=== PATIENT | female | born 1970 | race Caucasian/White ===

== ENCOUNTER 2016-12-15 19:48 | Emergency (ER) | payer OTHER ==
[~2016-12-15] VITALS: Ht 172.7 cm; Wt 77.1 kg
--- NOTE | 2016-12-15 20:13 | ED GI/GU/ABDOMINAL COMPLAINT ---
History of Present Illness General Chief Complaint: Abdominal Pain/Flank Pain Stated Complaint: PT IS HAVING ABDOMINAL PAIN Source: patient Exam Limitations: no limitations Vital Signs & Intake/Output Vital Signs & Intake/Output Vital Signs Date Time Temp Pulse Resp B/P B/P Pulse O2 O2 Flow FiO2 Mean Ox Delivery Rate 12/16 0150 98.6 88 18 126/83 99 Room Air 12/15 2301 98.8 93 16 135/80 100 Room Air 12/15 2101 99 Room Air 12/15 1953 98.4 110 16 125/89 95 Room Air ED Intake and Output 12/16 0000 12/15 1200 Intake Total 1000 Output Total Balance 1000 Intake, IV 1000 Patient 170 lb Weight Weight Reported by Patient Measurement Method Allergies Coded Allergies: Iodinated Contrast Media - Oral and (ANAPHYLAXIS 12/15/16) morphine (HIVES, PALPITATIONS, THROAT CLOSING 12/15/16) Reconcile Medications Amitriptyline HCl 75 MG TABLET 1 TAB PO QPM MIGRAINES (Reported) Ciprofloxacin HCl (Cipro) 500 MG TABLET 1 TAB PO BID gi infection Diphenoxylate HCl/Atropine (Lomotil 2.5-0.025 MG Tablet) 2.5 MG-0.025 MG TABLET 1 TAB PO 4 TIMES/DAY diarrhea Loratadine (Claritin) 10 MG TABLET 1 TAB PO DAILY ALLERGIES (Reported) Metronidazole (Flagyl) 500 MG TABLET 1 TAB PO 4 TIMES/DAY gi infection Ondansetron (Zofran Odt) 4 MG TAB.RAPDIS 1 TAB SL TID PRN nausea Topiramate (Topamax) 100 MG TABLET 1 TAB PO QPM MIGRAINES (Reported) Triage Note: PT TO ED FOR MID/LOWER ABD PAIN AND L SIDED "TEARING" PAIN. PAIN WORSE WITH MOVEMENT. +NAUSEA, +VOMITING, +WATERY DIARRHEA "WITH BLOOD". PT REPORTS TACTILE FEVER LAST PM. PT SEEN AT [facility] THIS AM FOR SAME. DISCHARGED WITH NO SCRIPTS "THEY JUST SAID MY CREATININE WAS ELEVATED." Triage Nurses Notes Reviewed? yes ? n Is pt currently ? No Onset: Gradual Duration: day(s):, waxing and waning Timing: recent history Quality/Severity: cramping Location: generalized abdomen Radiation: no radiation Activities at Onset: none Modifying Factors: Worsens With: defecating, palpation. Associated Symptoms: abdominal pain, diarrhea, nausea/vomiting HPI: 46-year-old woman history of polycystic kidney disease presents with 1-2 day history of nausea vomiting diarrhea. She states, "the diarrhea just comes right out at me. I can't hold anything down. I feel really weak." She does not recall any suspicious food ingestions. She knows no other sick contacts. She has no fever chills dysuria chest pain dizziness. She is otherwise well. Past History Travel History Traveled to [place] past 21 day No Medical History Any Pertinent Medical History? see below for history Neurological: migraine EENT: NONE Cardiovascular: NONE Respiratory: NONE Gastrointestinal: NONE Hepatic: NONE Renal: kidney disease "reduced renal function" Musculoskeletal: NONE Psychiatric: NONE Endocrine: NONE Surgical History Surgical History: non-contributory Psychosocial History What is your primary language Arabic Tobacco Use: Quit >30 days ago Family History Hx Contributory? No Review of Systems Review of Systems Constitutional: Reports: no symptoms. EENTM: Reports: no symptoms. Respiratory: Reports: no symptoms. Cardiovascular: Reports: no symptoms. GI: Reports: no symptoms. Genitourinary: Reports: no symptoms. Musculoskeletal: Reports: no symptoms. Skin: Reports: no symptoms. Neurological/Psychological: Reports: no symptoms. Hematologic/Endocrine: Reports: no symptoms. Immunologic/Allergic: Reports: no symptoms. All Other Systems: Reviewed and Negative Physical Exam Physical Exam General Appearance: well developed/nourished, mild distress, moderate distress Head: atraumatic, normal appearance Eyes: Bilateral: normal appearance. Ears, Nose, Throat, Mouth: hearing grossly normal Neck: normal inspection, supple Respiratory: normal breath sounds, chest non-tender, no respiratory distress, quiet respiration, lungs clear Cardiovascular: regular rate/rhythm Gastrointestinal: normal bowel sounds, soft, diffuse tenderness along the left flank and right lower quadrant. No rebound no guarding no organomegaly Back: normal inspection Extremities: normal range of motion Neurologic/Psych: no motor/sensory deficits, awake, alert, oriented x 3 Skin: intact, normal color, warm/dry Core Measures ACS in differential dx? No Severe Sepsis Present: No Septic Shock Present: No Progress Differential Diagnosis: colitis versus diverticulitis versus UTI versus cholecystitis versus other Plan of Care: Orders Procedure Date/time Status BASIC METABOLIC PANEL 12/15 2330 Complete URINALYSIS 12/15 1952 Complete TROPONIN LEVEL 12/15 1952 Complete LIPASE 12/15 1952 Complete HEPATIC FUNCTION PANEL 12/15 1952 Complete CBC WITHOUT DIFFERENTIAL 12/15 1952 Complete BASIC METABOLIC PANEL 12/15 1952 Complete AMYLASE 12/15 1952 Complete EKG 12/15 1952 Active Laboratory Tests 12/15/16 2336: Anion Gap 12, Estimated GFR 37 L, BUN/Creatinine Ratio 12.0, Glucose 95, Calcium 8.4 12/15/162258: Urine Color YEL, Urine Clarity CLEAR, Urine pH 7.0, Ur Specific [place] 1.010, Urine Protein NEG, Urine Ketones TRACE H, Urine Nitrite NEG, Urine Bilirubin NEG, Urine Urobilinogen 0.2, Ur Leukocyte Esterase NEG, Ur Microscopic EXAM NOT REQUIRED, Urine Hemoglobin NEG, Urine Glucose NEG 12/15/162052: Anion Gap 13, Estimated GFR 34 L, BUN/Creatinine Ratio 13.8, Glucose 93, Calcium 9.1, Total Bilirubin 0.8, Direct Bilirubin 0.4, AST 23, ALT 43, Alkaline Phosphatase 65, Troponin I < 0.01, Total Protein 6.4, Albumin 3.7, Amylase 54, Lipase 35, CBC w Diff NO MAN DIFF REQ, RBC 4.53, MCV 93.8, MCH 31.4 H, RDW 13.9 , MPV 8.2, Gran % 76.0 H, Lymphocytes % 15.1 L, Monocytes % 7.0, Eosinophils % 1.5, Basophils % 0.4, Absolute Granulocytes 8.0 H, Absolute Lymphocytes 1.6, Absolute Monocytes 0.7 H, Absolute Eosinophils 0.2, Absolute Basophils 0, PUBS MCHC 33.5 Diagnostic Imaging: Viewed by Me: CT Scan. Discussed w/RAD: CT Scan. Radiology Impression: ABD/PELVIC CT - CIRCUMFERENTIAL THICKENING IN COLON, C/W COLITIS Initial ED EKG: normal axis, normal intervals, normal p-waves, normal QRS complex, normal sinus rhythm Comments: PATIENT: MEENA GONZALEZ PRESENT AGE: 46 PATIENT ACCOUNT NO: [id number] : 68 LOCATION: [facility] ORDERING PHYSICIAN: INGA KEYS MD SERVICE DATE: 12/15/16-2023 EXAM TYPE: CAT - CT ABD & PELVIS W/O IV CONTRAS EXAMINATION: CT ABDOMEN AND PELVIS WITHOUT CONTRAST CLINICAL INFORMATION: Right lower quadrant and left-sided abdominal pain. Diarrhea, nausea and vomiting. COMPARISON: None. TECHNIQUE: Multidetector volumetric imaging was performed from the superior aspect of the liver through the pubic symphysis. Sagittal and coronal reformatted images were obtained on the technologist's workstation. DLP: 315 mGy-cm FINDINGS: Limited evaluation of the solid abdominal viscera in the absence of intravenous contrast. LUNG BASES: The visualized lung bases are unremarkable. LIVER, GALLBLADDER, AND BILIARY TREE: The liver is normal in size, shape, and attenuation. No contour deforming hepatic lesion or biliary ductal dilatation is present. The gallbladder is unremarkable with no evidence of radiopaque gallstones, gallbladder wall thickening, or obvious pericholecystic inflammatory changes. PANCREAS: Unremarkable. SPLEEN: Unremarkable. ADRENAL GLANDS: Unremarkable. KIDNEYS AND URETERS: There are innumerable cysts within the bilateral kidneys, indicative of polycystic kidney disease. Scattered punctate calcifications are present within both kidneys. There is no appreciable hydronephrosis of either kidney. BLADDER: Unremarkable. GASTROINTESTINAL TRACT: Evaluation of the gastrointestinal system is notable for circumferential thickening and pericolonic inflammatory changes of the cecum and ascending colon as well as the proximal segment of the transverse colon. There is relative sparing of the distal transverse colon as well as the proximal segment of the descending colon. Circumferential thickening and pericolonic inflammatory changes are again visualized involving the mid descending colon as well as the distal segment of the descending colon. The sigmoid colon is spared. The descending colon appears to be redundant. No extraluminal foci of air to suggest perforation. No pericolonic fluid collections. No organizing intra-abdominal fluid collections and no free intraperitoneal air. The appendix is present within the left hemipelvis and appears unremarkable. ABDOMINAL WALL: No significant hernia is appreciated. LYMPH NODES: No significant abdominal or pelvic adenopathy. VASCULAR: Normal course and caliber of the abdominal aorta and its branching vessels, without aneurysmal dilatation. Limited evaluation for vascular patency in the absence of intravenous contrast. PELVIC VISCERA: Unremarkable. OSSEOUS STRUCTURES: No acute osseous abnormality. Normal alignment of the imaged thoracolumbar spine. IMPRESSION: 1. Circumferential thickening and pericolonic inflammatory changes involving the cecum and ascending colon as well as the proximal segment of the transverse colon. Circumferential thickening and pericolonic inflammatory changes are also visualized involving the mid and distal segments of the descending colon. There is relative sparing of the distal segment of the transverse colon as well as the proximal segment of the descending colon and sigmoid colon. Differential diagnostic considerations include an infectious or inflammatory colitis given areas of sparing along the length of the colon. Correlate with lab values and patient clinical history. 2. Innumerable bilateral renal cortical cysts, indicative of polycystic kidney disease. DICTATED BY: CULLEN CORTES MD DATE/TIME DICTATED:12/15/162046 BILLPOSTER:[email or web address] DATE/TIME TRANSCRIBED:12/15/162046 CONFIDENTIAL, DO NOT COPY WITHOUT APPROPRIATE AUTHORIZATION. <Electronically signed in Other Vendor System> SIGNED BY: CULLEN CORTES MD 12/15/16 2100 Departure Departure Disposition: HOME OR SELF CARE Condition: Stable Clinical Impression Primary Impression: Colitis Departure Forms: Customer Survey General Discharge Information Prescriptions: Current Visit Scripts Ciprofloxacin HCl (Cipro) 1 TAB PO BID #20 TAB Diphenoxylate HCl/Atropine (Lomotil 2.5-0.025 MG Tablet) 1 TAB PO 4 TIMES/DAY #20 TAB Metronidazole (Flagyl) 1 TAB PO 4 TIMES/DAY #40 TAB Ondansetron (Zofran Odt) 1 TAB SL TID PRN nausea #10 TAB Comments 12/15/16, 22:00.... discussed with patient at length... ct scan c/w colitis ... cr 1.6. uncertain if this is her baseline.... she is otherwise well. Pt does not wish to be admitted... will give iv fluids, iv abx, repeat bmp, po challenge.\\\\ 12/16/16 1am... pt feeling better, creatinine is stable... pt wishes to go home, will rx with abx, close follow up advised.
[2016-12-15] MEDS ORDERED: AMITRIPTYLINE H75 M2 PO (20:37)
[2016-12-15] MEDS ORDERED: CLARITIN10 M1 PO (20:38)
[2016-12-15] MEDS ORDERED: TOPAMAX100 M1 PO (20:38)
--- NOTE | 2016-12-15 21:00 | CT SCAN REPORT ---
EXAMINATION: CT ABDOMEN AND PELVIS WITHOUT CONTRAST CLINICAL INFORMATION: Right lower quadrant and left-sided abdominal pain. Diarrhea, nausea and vomiting. COMPARISON: None. TECHNIQUE: Multidetector volumetric imaging was performed from the superior aspect of the liver through the pubic symphysis. Sagittal and coronal reformatted images were obtained on the technologist's workstation. DLP: 315 mGy-cm FINDINGS: Limited evaluation of the solid abdominal viscera in the absence of intravenous contrast. LUNG BASES: The visualized lung bases are unremarkable. LIVER, GALLBLADDER, AND BILIARY TREE: The liver is normal in size, shape, and attenuation. No contour deforming hepatic lesion or biliary ductal dilatation is present. The gallbladder is unremarkable with no evidence of radiopaque gallstones, gallbladder wall thickening, or obvious pericholecystic inflammatory changes. PANCREAS: Unremarkable. SPLEEN: Unremarkable. ADRENAL GLANDS: Unremarkable. KIDNEYS AND URETERS: There are innumerable cysts within the bilateral kidneys, indicative of polycystic kidney disease. Scattered punctate calcifications are present within both kidneys. There is no appreciable hydronephrosis of either kidney. BLADDER: Unremarkable. GASTROINTESTINAL TRACT: Evaluation of the gastrointestinal system is notable for circumferential thickening and pericolonic inflammatory changes of the cecum and ascending colon as well as the proximal segment of the transverse colon. There is relative sparing of the distal transverse colon as well as the proximal segment of the descending colon. Circumferential thickening and pericolonic inflammatory changes are again visualized involving the mid descending colon as well as the distal segment of the descending colon. The sigmoid colon is spared. The descending colon appears to be redundant. No extraluminal foci of air to suggest perforation. No pericolonic fluid collections. No organizing intra-abdominal fluid collections and no free intraperitoneal air. The appendix is present within the left hemipelvis and appears unremarkable. ABDOMINAL WALL: No significant hernia is appreciated. LYMPH NODES: No significant abdominal or pelvic adenopathy. VASCULAR: Normal course and caliber of the abdominal aorta and its branching vessels, without aneurysmal dilatation. Limited evaluation for vascular patency in the absence of intravenous contrast. PELVIC VISCERA: Unremarkable. OSSEOUS STRUCTURES: No acute osseous abnormality. Normal alignment of the imaged thoracolumbar spine. IMPRESSION: 1. Circumferential thickening and pericolonic inflammatory changes involving the cecum and ascending colon as well as the proximal segment of the transverse colon. Circumferential thickening and pericolonic inflammatory changes are also visualized involving the mid and distal segments of the descending colon. There is relative sparing of the distal segment of the transverse colon as well as the proximal segment of the descending colon and sigmoid colon. Differential diagnostic considerations include an infectious or inflammatory colitis given areas of sparing along the length of the colon. Correlate with lab values and patient clinical history. 2. Innumerable bilateral renal cortical cysts, indicative of polycystic kidney disease.
[2016-12-15 21:07] LABS: ABSOLUTE BASOPHIL COUNT 0 /CUMM (0.0-0.2); ABSOLUTE EOSINOPHIL COUNT 0.2 /CUMM (0.0-0.7); ABSOLUTE LYMPH COUNT 1.6 /CUMM (1.2-3.4); ABSOLUTE MONOCYTE COUNT 0.7 /CUMM (0.10-0.60); BASOPHIL % 0.4 % (0.0-2.0); EOSINOPHIL % 1.5 % (0-5); HEMATOCRIT 42.5 % (37-47); MEAN CORPUSCULAR HGB 31.4 PG (27.0-31.0); MEAN CORPUSCULAR HGB CONC 33.5 G/DL (33.0-37.0); MEAN CORPUSCULAR VOLUME 93.8 FL (81.0-99.0); MEAN PLATELET VOLUME 8.2 FL (7.4-10.4); PLATELET COUNT 178 /CUMM (130-400); RBC DISTRIBUTION WIDTH 13.9 % (11.5-14.5); RED BLOOD CELL CT 4.53 /CUMM (4.20-5.40); WHITE BLOOD CELL COUNT 10.6 /CUMM (4.8-10.8)
[2016-12-16] MEDS ORDERED: FLAGYL500 MG PO ×2 (01:06→01:42)
[2016-12-16] MEDS ORDERED: CIPRO500 M1 PO ×2 (01:06→01:42)
[2016-12-16] MEDS ORDERED: LOMOTIL 2.5-0.1 EACH PO ×2 (01:06→01:42)
[2016-12-16] MEDS ORDERED: ZOFRAN ODT4 M1 SL ×2 (01:06→01:42)
[2016-12-16 01:50] VITALS: BP 126/83
== END 2016-12-16 02:06 ==
LOC: ERH 19:48
PROVIDERS: Pediatrics
DX: K52.9 Noninfective gastroenteritis and colitis, unspecified (principal)
CPT/HCPCS: 74176; 81003; 93005; 93010; 96374; 96375; J0696; J2405